=== PATIENT | male | born 1965 | race Caucasian/White ===

== ENCOUNTER 2016-07-17 08:44 | Emergency (ER) | payer MEDICAID | END 2016-07-17 09:45 | disposition home or self-care (01) | LOC: D.ER 08:44 | DX: J30.9 Allergic rhinitis, unspecified (principal) ==

== ENCOUNTER 2016-07-31 13:02 | Emergency (ER) | payer MEDICAID | END 2016-07-31 17:40 | disposition home or self-care (01) | LOC: D.ER 13:02 | DX: M54.5 Low back pain (principal); F17.200 Nicotine dependence, unspecified, uncomplicated ==

== ENCOUNTER 2016-08-08 13:33 | Emergency (ER) | payer MEDICAID | END 2016-08-08 15:38 | disposition left against medical advice (07) | LOC: D.ER 13:33 | DX: M54.5 Low back pain (principal) ==

== ENCOUNTER 2016-08-09 09:27 | Emergency (ER) | payer MEDICAID | END 2016-08-09 12:59 | disposition home or self-care (01) | LOC: D.ER 09:27 | DX: J31.0 Chronic rhinitis (principal); M54.9 Dorsalgia, unspecified ==

== ENCOUNTER 2017-12-03 12:10 | Emergency (ER) | payer MEDICAID ==
[~2017-12-03] VITALS: Ht 163.8 cm; Wt 80.0 kg
[2017-12-03 12:14] VITALS: Ht 163.8 cm; Wt 80.0 kg
[2017-12-03] MEDS ORDERED: INVEGA SUS117 MG/0.7 IM (12:17)
[2017-12-03] MEDS ORDERED: CLARITIN-D1 TAB.SR1 PO (12:18)
[2017-12-03] MEDS ORDERED: OMEPRAZOLE20 M1 PO (12:18)
[2017-12-03] MEDS ORDERED: CATAPRES0.1 MG PO (12:19)
[2017-12-03] MEDS ORDERED: SEROQUEL400 MG PO (12:19)
[2017-12-03] MEDS ORDERED: MIRALAX527 GM PO (14:01)
[2017-12-03 14:17] VITALS: BP 140/92
== END 2017-12-03 14:17 | disposition home or self-care (01) ==
LOC: D.ER 12:10
DX: K59.00 Constipation, unspecified (principal); M54.5 Low back pain; M54.6 Pain in thoracic spine; K21.9 Gastro-esophageal reflux disease without esophagitis; F17.200 Nicotine dependence, unspecified, uncomplicated

== ENCOUNTER 2018-03-15 21:03 | Emergency (ER) | payer MEDICAID ==
[~2018-03-15] VITALS: Ht 163.8 cm; Wt 77.3 kg
[~2018-03-15 21:03] MED LIST: CATAPRES0.1 MG PO; CLARITIN-D1 TAB.SR1 PO; INVEGA SUS117 MG/0.7 IM; MIRALAX527 GM PO; OMEPRAZOLE20 M1 PO; SEROQUEL400 MG PO
[2018-03-15 21:22] VITALS: BP 133/86; Ht 163.8 cm; Wt 77.3 kg
[2018-03-15] MEDS ORDERED: VIBRAMYCIN 100100 MG PO (21:54)
== END 2018-03-15 21:49 | disposition home or self-care (01) ==
LOC: D.ER 21:03
DX: J01.90 Acute sinusitis, unspecified (principal); T78.49XA Other allergy, initial encounter; X58.XXXA Exposure to other specified factors, initial encounter; J02.9 Acute pharyngitis, unspecified; I10 Essential (primary) hypertension; F41.9 Anxiety disorder, unspecified; F17.200 Nicotine dependence, unspecified, uncomplicated

== ENCOUNTER 2018-03-27 17:38 | Emergency (ER) | payer MEDICAID ==
[~2018-03-27] VITALS: Ht 163.8 cm; Wt 78.6 kg
[~2018-03-27 17:38] MED LIST changes: +VIBRAMYCIN 100100 MG PO
[2018-03-27 18:07] VITALS: Ht 163.8 cm; Wt 78.6 kg
[2018-03-27 19:02] LABS: APPEARANCE CLEAR (CLEAR); BILIRUBIN NEGATIVE (NEGATIVE); COLOR YELLOW (YELLOW); GLUCOSE NEGATIVE (NEGATIVE); KETONE NEGATIVE (NEGATIVE); NITRITE NEGATIVE (NEGATIVE); PROTEIN NEGATIVE (NEGATIVE); SPECIFIC GRAVITY 1.005 (1.005-1.020); UROBILINOGEN NORMAL (NORMAL)
[2018-03-27] MEDS ORDERED: LEVAQUIN750 MG PO (19:06)
[2018-03-27 19:18] VITALS: BP 116/75
== END 2018-03-27 19:10 | disposition home or self-care (01) ==
LOC: D.ER 17:38
PROVIDERS: Family Medicine
DX: J40 Bronchitis, not specified as acute or chronic (principal); J02.9 Acute pharyngitis, unspecified; R10.9 Unspecified abdominal pain; I10 Essential (primary) hypertension; K21.9 Gastro-esophageal reflux disease without esophagitis; F17.200 Nicotine dependence, unspecified, uncomplicated

== ENCOUNTER 2019-09-08 14:42 | Emergency (ER) | payer MEDICAID ==
[~2019-09-08] VITALS: Ht 163.8 cm; Wt 81.4 kg
[~2019-09-08 14:42] MED LIST changes: +LEVAQUIN750 MG PO
[2019-09-08 15:20] VITALS: Ht 163.8 cm; Wt 81.4 kg
[2019-09-08] MEDS ORDERED: DEBROX OTIC15 ML EACH EAR (18:27)
[2019-09-08] MEDS ORDERED: FEXOFENADINE HC60 MG PO (18:27)
[2019-09-08] MEDS ORDERED: PSEUDO-GEST60 MG PO (18:27)
[2019-09-08 18:45] VITALS: BP 151/87
== END 2019-09-08 18:45 | disposition home or self-care (01) ==
LOC: D.ER 14:42
DX: H61.22 Impacted cerumen, left ear (principal); R09.81 Nasal congestion; I10 Essential (primary) hypertension

== ENCOUNTER 2019-11-18 12:12 | Emergency (ER) | payer MEDICAID ==
[~2019-11-18] VITALS: Ht 163.8 cm; Wt 85.0 kg
[~2019-11-18 12:12] MED LIST changes: +DEBROX OTIC15 ML EACH EAR; +FEXOFENADINE HC60 MG PO; +PSEUDO-GEST60 MG PO
[2019-11-18 12:21] VITALS: Ht 163.8 cm; Wt 85.0 kg
[2019-11-18 13:04] LABS: BILIRUBIN NEGATIVE (NEGATIVE); GLUCOSE NEGATIVE (NEGATIVE); KETONE NEGATIVE (NEGATIVE); NITRITE NEGATIVE (NEGATIVE); SPECIFIC GRAVITY 1.005 (1.005-1.020); UROBILINOGEN NORMAL (NORMAL)
[2019-11-18 13:10] LABS: ANION GAP 14.6 mmol/L (8-16); CALCIUM 8.6 mg/dL (8.5-10.1); CARBON DIOXIDE 23.3 mmol/L (21.0-32.0); CREATININE - SERUM 1.2 mg/dL (0.6-1.3); POTASSIUM - SERUM 3.9 mmol/L (3.5-5.1)
[2019-11-18 13:16] LABS: ALBUMIN 3.9 g/dL (3.4-5.0); BILIRUBIN - TOTAL 0.28 mg/dL (0.2-1.3); PROTEIN - SERUM 8.3 g/dL (6.4-8.2)
[2019-11-18 13:27] LABS: EOSINOPHILS 5.1 % (0-7); HEMATOCRIT 40.8 % (42.0-54.0); HEMOGLOBIN 12.9 g/dL (13.5-17.5); LYMPHOCYTES 32.7 % (15-50); MCH 26.8 pg (26.0-34.0); MCHC 31.6 g/dL (31.0-37.0); MCV 84.6 fL (80.0-100.0); MEAN PLATELET VOLUME 9.5 fL (7.4-10.4); MONOCYTES 12.1 % (2-11); NEUTROPHILS 49.1 % (40-80); RBC 4.82 10x6/uL (4.20-6.10); RDW 16.2 % (11.5-14.5); WBC 4.9 10x3/uL (4.8-10.8)
[2019-11-18 13:29] LABS: PLATELET COUNT 335 10x3/uL (130-400)
[2019-11-18] MEDS ORDERED: FLAGYL500 MG PO (15:45)
[2019-11-18] MEDS ORDERED: LEVAQUIN750 MG PO (15:45)
[2019-11-18 16:00] VITALS: BP 141/68
== END 2019-11-18 19:41 | disposition home or self-care (01) ==
LOC: D.ER 12:12
PROVIDERS: Family Medicine
DX: K57.92 Diverticulitis of intestine, part unspecified, without perforation or abscess without bleeding (principal); I10 Essential (primary) hypertension; R10.9 Unspecified abdominal pain